=== PATIENT | female | born 2000 | race African-American/Black ===

== ENCOUNTER 2021-07-13 05:05 | Emergency (ER) | payer MEDICAID, OTHER ==
[~2021-07-13] VITALS: Ht 167.6 cm; Wt 61.2 kg
[2021-07-13 07:33] VITALS: BP 128/78
[2021-07-13] MEDS ORDERED: AMOX-277 PO (08:40)
== END 2021-07-13 08:47 | disposition home or self-care (01) ==
LOC: ER 05:05
DX: J02.9 Acute pharyngitis, unspecified (principal); Z20.822 Contact with and (suspected) exposure to COVID-19
CPT/HCPCS: 36415; 87426